=== PATIENT | male | born 1950 | race Caucasian/White ===

== ENCOUNTER → 2017-06-17 | Outpatient (CLI) | payer MEDICARE, OTHER ==
--- NOTE | 2017-06-17 15:30 | Diagnostic Imaging Report ---
INDICATION: Chronic back pain and hip pain. FINDINGS: Three views of the lumbar spine show good alignment of the vertebral bodies. Body heights well maintained. No compression fracture demonstrated. Degenerative disc disease noted throughout with hypertrophic bony lipping of the endplates anteriorly. Mild settling of the disc spaces. Moderate degenerative facet disease at L5-S1. No evidence of spondylolysis or spondylolisthesis. The aorta is calcified without evidence of aneurysm. SI joints show moderate degenerative changes bilaterally. IMPRESSION: 1. No acute abnormality is demonstrated. 2. Moderate degenerative disc disease throughout the lumbar spine as well as degenerative changes of the SI joints. Dictated by: Dictated on workstation # [id number]
--- NOTE | 2017-06-17 18:18 | Diagnostic Imaging Report ---
EXAMINATION: Thoracic spine. INDICATION: Back pain. AP, lateral, and swimmer's views were obtained. There are no prior studies available for comparison. FINDINGS: There is a 30-40% compression deformity of the superior endplate of T12. This injury appears to be long-standing in nature. There may also be a very mild compression deformity of the superior endplates of T11 and T12. These too seem to be long-standing in nature. There is no fracture or acute bony abnormality identified. There is narrowing of the disc spaces at T10-11, T11-12, and T12-L1. The other intervertebral spaces are fairly well maintained. There is no sign of a paraspinal mass. IMPRESSION: 1. 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 There is no acute bony abnormality identified. 2. If clinical concern regarding an underlying abnormality persists, then MRI would be recommended for further study. Dictated by: Dictated on workstation # [id number]
--- NOTE | 2017-06-17 19:06 | Diagnostic Imaging Report ---
EXAMINATION: Left hip at 12:39 p.m. INDICATION: Hip pain. AP and lateral views were obtained. There are no prior studies available for comparison. FINDINGS: There is no fracture, dislocation, or acute bony abnormality evident. There is only mild degenerative change of the hip joint. The soft tissues are unremarkable. IMPRESSION: There is no evidence for an acute bony abnormality. Dictated by: Dictated on workstation # [id number]
== END ==
LOC: RAD 12:10
DX: M51.26 Other intervertebral disc displacement, lumbar region (principal); S22.080A Wedge compression fracture of T11-T12 vertebra, initial encounter for closed fracture; X58.XXXA Exposure to other specified factors, initial encounter; Y99.8 Other external cause status
CPT/HCPCS: 72072; 72100; 73502

== ENCOUNTER → 2017-07-08 | Outpatient (CLI) | payer MEDICARE, OTHER ==
--- NOTE | 2017-07-08 10:49 | Diagnostic Imaging Report ---
EXAMINATION: DEXA scan. INDICATION: M81.0. TECHNIQUE: Bone mineral density estimated based on dual energy radiography over the lumbar spine and femoral necks, was performed. FINDINGS: The lumbar spine T-score is 0.7, and T score over the left femoral neck is 0.7 and over the right femoral neck is 0.9. IMPRESSION: Bone mineral density within normal range. Dictated by: Dictated on workstation # [id number]
== END ==
LOC: RAD 09:05
PROVIDERS: ATTEND Nurse Practitioner Family
DX: Z13.820 Encounter for screening for osteoporosis (principal)
CPT/HCPCS: 77080

== ENCOUNTER → 2017-07-21 | Outpatient (CLI) | payer MEDICARE, OTHER | LOC: RAD 11:10 | DX: M46.06 Spinal enthesopathy, lumbar region (principal); Z53.29 Procedure and treatment not carried out because of patient's decision for other reasons ==

== ENCOUNTER → 2017-12-17 | Outpatient (CLI) | payer MEDICARE, OTHER ==
[2017-12-17 12:01] LABS: BASOPHILS % (AUTO) 0 % (0-10); EOSINOPHILS # (AUTO) 0.2 10^3/uL (0.0-0.3); EOSINOPHILS % (AUTO) 2 % (0-10); HEMATOCRIT 42 % (40-54); HEMOGLOBIN 14.8 G/DL (13.3-17.7); LYMPHOCYTES # (AUTO) 3.4 X 10^3 (1.0-4.0); LYMPHOCYTES % (AUTO) 32 % (12-44); MEAN CORPUSCULAR HEMOGLOBIN 34 PG (25-34); MEAN CORPUSCULAR HGB CONC 35 G/DL (32-36); MEAN CORPUSCULAR VOLUME 96 FL (80-99); MEAN PLATELET VOLUME 8.4 FL (7.4-10.4); MONOCYTES # (AUTO) 0.8 X 10^3 (0.0-1.0); MONOCYTES % (AUTO) 8 % (0-12); NEUTROPHILS % (AUTO) 57 % (42-75); PLATELET COUNT 326 10^3/uL (130-400); RED BLOOD COUNT 4.39 10^6/uL (4.35-5.85); RED CELL DISTRIBUTION WIDTH 13.3 % (10.0-14.5); WHITE BLOOD COUNT 10.4 10^3/uL (4.3-11.0)
== END ==
LOC: LAB 11:36
DX: D72.828 Other elevated white blood cell count (principal)
CPT/HCPCS: 36415; 85025

== ENCOUNTER → 2018-04-08 | Outpatient (CLI) | payer MEDICARE, OTHER | LOC: CARD 08:55 | DX: I51.7 Cardiomegaly (principal); I35.1 Nonrheumatic aortic (valve) insufficiency | CPT/HCPCS: 93306 ==

== ENCOUNTER → 2019-03-21 | Outpatient (CLI) | payer MEDICARE, OTHER ==
--- NOTE | 2019-03-21 16:47 | Diagnostic Imaging Report ---
PROCEDURE: CT left upper extremity without contrast. TECHNIQUE: Multiple contiguous axial images were obtained through the left upper extremity without the use of intravenous contrast. Auto Exposure Controls were utilized during the CT exam to meet ALARA standards for radiation dose reduction. INDICATION: Left shoulder pain, decreased range of motion, worsening. COMPARISON: Radiographs from 03/21/2019. FINDINGS: No acute fracture or dislocation is seen in the left shoulder. Alignment appears normal. There are mild degenerative changes in the glenohumeral joint and moderate of the acromioclavicular joint. There is calcification seen along the supraspinatus tendon, may represent calcific tendinitis. The tendons are suboptimally seen by CT. There is a prominent subacromial spur. There is mild atrophy of the supraspinatus and subscapularis musculature. No soft tissue fluid collections or adenopathy is seen. IMPRESSION: 1. No acute osseous abnormalities seen in the left shoulder. 2. Atrophy in the supraspinatus and subscapularis musculature may be due to chronic tear, although the tendons are suboptimally seen by CT. Calcification along the supraspinatus tendon may be due to calcific tendinitis. 3. Degenerative changes in the left shoulder including a prominent subacromial spur. Dictated by: Dictated on workstation # [id number]
--- NOTE | 2019-03-21 18:01 | Diagnostic Imaging Report ---
INDICATION: Chronic left shoulder pain. TIME OF EXAM: 04:18 p.m. FINDINGS: Three views of left shoulder were obtained. Glenohumeral and acromioclavicular alignment are normal. Acromiohumeral space is normal. No fracture or dislocation is seen. IMPRESSION: No acute bony abnormality is detected. Dictated by: Dictated on workstation # [id number]
== END ==
LOC: RAD 15:55
DX: M19.012 Primary osteoarthritis, left shoulder (principal)
CPT/HCPCS: 73030; 73200

== ENCOUNTER → 2020-08-05 | Outpatient (CLI) | payer MEDICARE, OTHER ==
--- NOTE | 2020-08-05 15:32 | Diagnostic Imaging Report ---
INDICATION: COPD CHRONIC BRONCHITIS COMPARISON: 03/11/2018. FINDINGS: Frontal and lateral views of the chest demonstrate normal heart size and pulmonary vascularity. The lungs are clear. There are no signs of infiltrate, pleural effusions or pneumothoraces. The visualized osseous structures show no acute abnormalities. IMPRESSION: 1. No acute process. No signs of infiltrates, effusions or pneumothoraces. Dictated by: Dictated on workstation # [id number]
--- NOTE | 2020-08-05 15:33 | Diagnostic Imaging Report ---
INDICATION: Bilateral hip pain and weakness. COMPARISON: None. FINDINGS: An AP view of the pelvis and two dedicated radiographic views of each hip were obtained. There is no fracture, dislocation, bone destruction, or radiopaque foreign body. The visualized pelvic osseous structures and the SI joints demonstrate no acute fracture or dislocation. There is no bone destruction or radiopaque foreign body. The surrounding soft tissue structures are unremarkable. IMPRESSION: Unremarkable radiographic exam of the pelvis and bilateral hips. Dictated by: Dictated on workstation # [id number]
== END ==
LOC: RAD 14:55
DX: J41.0 Simple chronic bronchitis (principal); M25.551 Pain in right hip; M25.552 Pain in left hip
CPT/HCPCS: 71046; 73521

== ENCOUNTER → 2021-06-10 | Outpatient (CLI) | payer MEDICARE, OTHER ==
--- NOTE | 2021-06-10 15:19 | Diagnostic Imaging Report ---
INDICATION: Pain in the right shoulder. TIME OF EXAM: 3:04 p.m. Two views of the right shoulder demonstrate normal glenohumeral and acromiohumeral alignment. Acromiohumeral space is normal. No fracture or dislocation is identified. IMPRESSION: No acute bony abnormality is detected. Dictated by: Dictated on workstation # [id number]
== END ==
LOC: RAD 14:29
DX: M25.511 Pain in right shoulder (principal)
CPT/HCPCS: 73030